=== PATIENT | female | born 1965 | race Caucasian/White ===

== ENCOUNTER 2018-05-06 13:44 | Emergency (ER) | payer MEDICARE, MEDICAID ==
[~2018-05-06 13:44] MED LIST: GABA-531 PO
== END 2018-05-06 14:52 | disposition left against medical advice (07) ==
LOC: EMS 14:00
DX: B85.0 Pediculosis due to Pediculus humanus capitis (principal); G89.29 Other chronic pain; Z53.21 Procedure and treatment not carried out due to patient leaving prior to being seen by health care provider

== ENCOUNTER 2019-02-10 15:10 | Emergency (ER) | payer MEDICARE, MEDICAID ==
[~2019-02-10] VITALS: Ht 170.2 cm; Wt 86.4 kg
[2019-02-10 15:21] VITALS: BP 130/94
== END 2019-02-10 15:48 | disposition home or self-care (01) ==
LOC: EMS 15:11
DX: B85.1 Pediculosis due to Pediculus humanus corporis (principal); Z88.1 Allergy status to other antibiotic agents

== ENCOUNTER 2019-05-21 19:30 | Emergency (ER) | payer MEDICARE, MEDICAID ==
[~2019-05-21] VITALS: Ht 170.2 cm; Wt 72.7 kg
[2019-05-21 21:17] VITALS: BP 131/75
== END 2019-05-21 21:25 | disposition home or self-care (01) ==
LOC: EMS 19:30
DX: B85.2 Pediculosis, unspecified (principal); R03.0 Elevated blood-pressure reading, without diagnosis of hypertension; Z88.2 Allergy status to sulfonamides

== ENCOUNTER 2019-07-17 18:10 | Emergency (ER) | payer MEDICARE, MEDICAID ==
[~2019-07-17] VITALS: Ht 170.2 cm; Wt 80.0 kg
[2019-07-17 18:35] VITALS: BP 130/72
== END 2019-07-17 22:25 | disposition left against medical advice (07) ==
LOC: EMS 18:13
DX: B85.1 Pediculosis due to Pediculus humanus corporis (principal); Z53.21 Procedure and treatment not carried out due to patient leaving prior to being seen by health care provider

== ENCOUNTER 2021-08-05 16:11 | Emergency (ER) | payer MEDICAID, MEDICARE ==
[~2021-08-05] VITALS: Ht 165.1 cm; Wt 86.4 kg
[2021-08-05] MEDS ORDERED: [UNRECOGNIZED DRUG - CODE] TP (17:15)
[2021-08-05] MEDS ORDERED: PERMETHRIN 5% 60 GM CREAM TP ONE (17:15)
[2021-08-05] MEDS ORDERED: PERMETHRIN 1% TP (17:15)
[2021-08-05 18:07] VITALS: BP 122/70
== END 2021-08-05 18:08 | disposition home or self-care (01) ==
LOC: EMS 16:12
DX: B85.0 Pediculosis due to Pediculus humanus capitis (principal); Z88.2 Allergy status to sulfonamides
CPT/HCPCS: 99282; Z7502; Z7610